=== PATIENT | female | born 1980 | race Caucasian/White ===

== ENCOUNTER 2018-08-04 08:04 | Emergency (ER) | payer SELFPAY ==
[2018-08-04] MEDS ORDERED: IBUPROFEN 400 MG TAB ONE (09:36)
[2018-08-04] MEDS ORDERED: IBUPROFEN 200 MG TAB PO ONE (09:37)
--- NOTE | 2018-08-04 09:59 | RAD REPORT ---
EXAM DESCRIPTION: RAD - Knee Right 3 View - 08/04/2018 9:45 am CLINICAL HISTORY: Right knee pain FINDINGS: No fracture or dislocation is seen. Bones appear osteoporotic. . Horizontal lines within the distal femur are nonspecific but may represent growth arrest lines. If the patient's knee pain persists then follow up x-ray in 4 weeks would recommended for re-evaluati on
--- NOTE | 2018-08-04 10:29 | EDPHYS ---
Physician Documentation [facility] Name: Nicho Roman Age: 38 yrs Sex: Female : 1980 Arrival Date: 08/04/2018 Time: 08:09 Bed 15 Private MD: ED Physician Omar Lofton HPI: 08/04 10:12 This 38 yrs old Female presents to ER via Ambulatory with complaints of Knee gs Pain. 10:12 The patient presents with pain, that is acute. The complaints affect the right knee. gs Onset: The symptoms/episode began/occurred 2 day(s) ago. Modifying factors: the symptoms are aggravated by bending knee. Associated signs and symptoms: Pertinent negatives numbness, tingling, weakness. Severity of symptoms: At their worst the symptoms were moderate, in the emergency department the symptoms are unchanged. The patient has not experienced similar symptoms in the past. Historical: - Allergies: 08:43 Azo; iw - Home Meds: 08:43 None [Active]; iw - PMHx: :43 None; iw - PSHx: 08:43 Tubal ligation; iw - Immunization history:: Adult Immunizations up to date. - Social history:: Smoking status: Patient uses tobacco products, smokes one pack cigarettes per day. - Ebola Screening: : Patient negative for fever greater than or equal to 101.5 degrees Fahrenheit, and additional compatible Ebola Virus Disease symptoms Patient denies exposure to infectious person Patient denies travel to an Ebola-affected area in the 21 days before illness onset No symptoms or risks identified at this time. ROS: 10:12 All other systems are negative. gs Exam: 10:12 ENT: Nares patent. No nasal discharge, no septal abnormalities noted. Tympanic gs membranes are normal and external auditory canals are clear. Oropharynx with no redness, swelling, or masses, exudates, or evidence of obstruction, uvula midline. Mucous membranes moist. Cardiovascular: Regular rate and rhythm with a normal S1 and S2. No gallops, murmurs, or rubs. Normal PMI, no JVD. No pulse deficits. Respiratory: Lungs have equal breath sounds bilaterally, clear to auscultation and percussion. No rales, rhonchi or wheezes noted. No increased work of breathing, no retractions or nasal flaring. Abdomen/GI: Soft, non-tender, with normal bowel sounds. No distension or tympany. No guarding or rebound. No evidence of tenderness throughout. Skin: Warm, dry with normal turgor. Normal color with no rashes, no lesions, and no evidence of cellulitis. Neuro: Awake and alert, GCS 15, oriented to person, place, time, and situation. Cranial nerves II-XII grossly intact. Motor strength 5/5 in all extremities. Sensory grossly intact. Cerebellar exam normal. Normal gait. 10:12 Constitutional: The patient appears alert, awake. 10:12 Musculoskeletal/extremity: Extremities: grossly normal except: noted in the right knee: pain, There is no evidence of deformity, swelling, tenderness, Joints: the right knee displays painful range of motion, tenderness. Vital Signs: 08:38 BP 120 / 73; Pulse 74; Resp 16; Temp 98.3; Pulse Ox 98% on R/A; Weight 38.56 kg; Height iw 5 ft. 1 in. (154.94 cm); Pain 8/10; 08:38 Body Mass Index 16.06 (38.56 kg, 154.94 cm) iw MDM: 08:53 Patient medically screened. gs 10:12 Differential diagnosis: closed fracture, contusion, tendonitis. Data reviewed: vital gs signs, nurses notes. Counseling: I had a detailed discussion with the patient and/or guardian regarding: radiology results, the need for outpatient follow up, a orthopedic surgeon. Response to treatment: the patient's symptoms have mildly improved after treatment. 08/04 09:09 Order name: Knee Right 3 View XRAY; Complete Time: 10:12 gs Administered Medications: 09:30 Drug: Ibuprofen 600 mg Route: PO; [facility] 10:57 Follow up: Response: No adverse reaction jl7 09:47 Not Given (Other Intervention Used): Naproxen 500 mg PO once jl7 Disposition: 08/04/18 10:27 Discharged to Home. Impression: Other internal derangements of right knee. - Condition is Stable. - Prescriptions for Tylenol- Codeine #4 300-60 mg Oral Tablet - take 1 tablet by ORAL route every 6 hours As needed; 6 tablet. - Medication Reconciliation Form, Thank You Letter, Antibiotic Education, Prescription Opioid Use form. - Follow up: Private Physician; When: 2 - 3 days; Reason: Re-evaluation by your physician. Signatures: Dispatcher [employer] Kya Contreras, RN RN iw Brain Walker RN RN jl7 Omar Lofton MD MD gs Corrections: (The following items were deleted from the chart) 10:58 10:27 08/04/2018 10:27 Discharged to Home. Impression: Other internal derangements of jl7 right knee. Condition is Stable. Forms are Medication Reconciliation Form, Thank You Letter, Antibiotic Education, Prescription Opioid Use. Follow up: Private Physician; When: 2 - 3 days; Reason: Re-evaluation by your physician. gs
--- NOTE | 2018-08-04 10:29 | ER ---
Nurse's Notes [facility] Name: Nicho Roman Age: 38 yrs Sex: Female : 1980 Arrival Date: 08/04/2018 Time: 08:09 Bed 15 Private MD: Diagnosis: Other internal derangements of right knee Presentation: 08/04 08:36 Presenting complaint: Patient states: right knee pain X 2 days, denies injury, hurts iw when she walks or when she bends it. Transition of care: patient was not received from another setting of care. Onset of symptoms was August 02, 2018. Risk Assessment: Do you want to hurt yourself or someone else? Patient reports no desire to harm self or others. Initial Sepsis Screen: Does the patient meet any 2 criteria? No. Patient's initial sepsis screen is negative. Does the patient have a suspected source of infection? No. Patient's initial sepsis screen is negative. Care prior to arrival: None. 08:36 Method Of Arrival: Ambulatory iw 08:36 Acuity: ROSIBEL 4 iw Historical: - Allergies: 08:43 Azo; iw - Home Meds: 08:43 None [Active]; iw - PMHx: 08:43 None; iw - PSHx: 08:43 Tubal ligation; iw - Immunization history:: Adult Immunizations up to date. - Social history:: Smoking status: Patient uses tobacco products, smokes one pack cigarettes per day. - Ebola Screening: : Patient negative for fever greater than or equal to 101.5 degrees Fahrenheit, and additional compatible Ebola Virus Disease symptoms Patient denies exposure to infectious person Patient denies travel to an Ebola-affected area in the 21 days before illness onset No symptoms or risks identified at this time. Screenin:00 Abuse screen: Denies threats or abuse. Denies injuries from another. Nutritional jl7 screening: No deficits noted. Tuberculosis screening: No symptoms or risk factors identified. Fall Risk Gait- Impaired (20 pts.). Total Jules Fall Scale indicates No Risk (0-24 pts). Assessment: 09:00 General: Appears in no apparent distress. uncomfortable, Behavior is calm, cooperative, jl7 appropriate for age. Pain: Complains of pain in right knee Pain currently is 8 out of 10 on a pain scale. Pain began years ago. Neuro: Level of Consciousness is awake, alert, obeys commands, Oriented to person, place, time, situation. Cardiovascular: Patient's skin is warm and dry. Respiratory: Airway is patent Respiratory effort is even, unlabored, Respiratory pattern is regular, symmetrical. Derm: Skin is pink, warm \T\ dry. 10:00 Reassessment: Patient appears in no apparent distress at this time. No changes from jl7 previously documented assessment. Patient and/or family updated on plan of care and expected duration. Pain level reassessed. Patient is alert, oriented x 3, equal unlabored respirations, skin warm/dry/pink. Vital Signs: 08:38 BP 120 / 73; Pulse 74; Resp 16; Temp 98.3; Pulse Ox 98% on R/A; Weight 38.56 kg; Height iw 5 ft. 1 in. (154.94 cm); Pain 8/10; 08:38 Body Mass Index 16.06 (38.56 kg, 154.94 cm) iw ED Course: 08:09 Patient arrived in ED. rg4 08:37 Triage completed. iw 08:37 Omar Lofton MD is Attending Physician. gs 08:38 Brain Walker, YOVANA is Primary Nurse. jl7 08:44 Arm band placed on. iw 09:00 Patient has correct armband on for positive identification. Placed in gown. Bed in low jl7 position. Call light in reach. Side rails up X 1. Pulse ox on. NIBP on. Warm blanket given. 09:45 X-ray completed. Portable x-ray completed in exam room. Patient tolerated procedure tm4 well. 09:46 Knee Right 3 View XRAY In Process Unspecified. EDMS 10:56 No provider procedures requiring assistance completed. Patient did not have IV access jl7 during this emergency room visit. Administered Medications: 09:30 Drug: Ibuprofen 600 mg Route: PO; jl7 10:57 Follow up: Response: No adverse reaction jl7 09:47 Not Given (Other Intervention Used): Naproxen 500 mg PO once jl7 Outcome: 10:27 Discharge ordered by . gs 10:56 Discharged to home ambulatory, with family. jl7 10:56 Condition: stable 10:56 Discharge instructions given to patient, family, Instructed on discharge instructions, follow up and referral plans. medication usage, Demonstrated understanding of instructions, follow-up care, medications, Prescriptions given X 1. 10:58 Patient left the ED. jl7 Signatures: Dispatcher [employer] EDMS Anali Villatoro tm4 Kya Newsome RN RN iw Garcia, Rubi 4 Brain Walker RN RN jl7 Omar Lofton MD MD
== END 2018-08-04 10:58 | disposition home or self-care (01) ==
LOC: ER 08:04
DX: M23.8X1 Other internal derangements of right knee (principal); F17.210 Nicotine dependence, cigarettes, uncomplicated; Z88.8 Allergy status to other drugs, medicaments and biological substances
CPT/HCPCS: 99284

== ENCOUNTER 2018-11-27 09:30 | Emergency (ER) | payer SELFPAY ==
--- OUTSIDE RECORDS SUMMARY | 2018-11-27 09:37 | XMS REPORT ---
:1980 Author Organization [facility] Address [address] [place] [address] [address] [place] [address] Care Team Providers Name Role Phone Unavailable Unavailable Unavailable Payers Payer Name Policy Type Policy Number Effective Date Expiration Date Problems This patient has no known problems. Allergies, Adverse Reactions, Alerts Allergy Allergy Status Severity Reaction(s) Onset Inactive Treating Comments Name Type Date Date Clinician No Known DA Active U 2018-10 Allergies 23 00:00:0 0 Medications This patient has no known medications. Results Test Description Test Time Test Comments Text Results Atomic Results Result Comments UR HCG QUAL 2018-11-08 07:19:00 Test Item Value Reference Range Comments UR HCG QUAL (test code=HCGQLU) NEGATIVE NEGATIVE
--- NOTE | 2018-11-27 10:20 | RAD REPORT ---
EXAM DESCRIPTION: CT - Stone Protocol - 11/27/2018 10:10 am CLINICAL HISTORY: Left flank pain, dysuria COMPARISON: None. TECHNIQUE: Axial 5 mm thick images were obtained without oral or IV contrast. The [id number] span s the entirety of the system including uppermost abdomen and lung bases. All CT scans are performed using dose optimization technique as appropriate and may include automated exposure control or mA/KV adjustment according to patient size. FINDINGS: Small fullness of the left collecting system is present very slightly edematous appearance along the course of the left ureter and subtle edema changes of the left kidney relative to the righ t. A 2 millimeter nonobstructing calyx calculus is present on the left. No obstructing ureteral calcu heena. No bladder calculus present. No suspicious renal masses. Isodense masses and pyelonephritis are not excluded on a stone protocol CT scan. No urinary bladder suspicious finding. No significant adren al finding. Uterus and ovaries show no suspicious findings. Physiologic quantity of free fluid in the cul de sac. Imaged portions of the liver, spleen and pancreas show no suspicious findings on non-contrast imaging . No gallbladder or biliary tree abnormality identified. No suspicious bowel findings. No hernia, mass or bulky lymphadenopathy noted. No free air or pneumatosis. No significant bony abnormality. IMPRESSION: Mild fullness of the left collecting system with a mild or subtle edema of the left kidn ey and left collecting system. Findings are questionable for pyelonephritis and/or ureteritis. Noncontrast CT imaging is limited in assessing these etiologies. Correlation is needed with UA abnormalities. A 2 millimeter nonobstructing calculus noted on the left. No other calculus seen. No acute GI or CASE MANAGEMENT RN process. No surgically emergent finding. Isodense masses and pyelonephritis are not excluded on stone protocol technique.
[2018-11-27 10:28] LABS: Urine Blood 3+ (NEG); Urine Glucose NEGATIVE (NEG); Urine Protein 3+ (NEG); Urine Specific Gravity 1.025 (1.005-1.030); Urine pH 6.5 (5.0-7.0)
[2018-11-27] MEDS ORDERED: ONDANSETRON 4 MG/2 ML VIAL ONE (10:37)
[2018-11-27] MEDS ORDERED: KETOROLAC 30 MG/ML INJ ONE (10:37)
[2018-11-27] MEDS ORDERED: NA CHLORIDE 0.9% 1,000 ML ONE (10:37)
[2018-11-27 10:39] LABS: Absolute Lymphocytes (CBC) 1.8 K/uL (0.7-4.9); Absolute Monocytes 0.9 K/uL (0.1-1.3); Absolute Neutrophil 7.4 K/uL (1.8-8.0); Basophils % 0.5 % (0-1.3); Eosinophils % 0.7 % (0-4.4); Hematocrit 38.4 % (36.0-45.0); Lymphocytes % 17.6 % (15.3-44.8); MPV 8.1 fL (7.6-11.3); Monocytes % 8.6 % (3.3-12.3); RBC Red Blood Cell Count 4.36 M/uL (3.86-4.86)
[2018-11-27 10:53] LABS: ALT/SGPT 84 U/L (12-78); AST/SGOT 67 U/L (15-37); Albumin 3.4 g/dL (3.4-5.0); Alkaline Phosphatase 39 U/L (45-117); BUN Blood Urea Nitrogen 9 mg/dL (7-18); Bicarbonate 29 mmol/L (21-32); Bilirubin Total 0.6 mg/dL (0.2-1.0); Glucose Level 158 mg/dL (74-106); Potassium 3.3 mmol/L (3.5-5.1); Protein, Total 7.2 g/dL (6.4-8.2); Sodium Level 139 mmol/L (136-145)
[2018-11-27] MEDS ORDERED: CEFTRIAXONE/SWI 1gm 1 GM/10 ML SYR ONE (10:56)
--- NOTE | 2018-11-27 10:56 | EDPHYS ---
Physician Documentation [facility] Name: Nicho Roman Age: 38 yrs Sex: Female : 1980 Arrival Date: 11/27/2018 Time: 09:33 Bed 6 Private MD: ED Physician Rob Pablo HPI: 11/27 09:51 This 38 yrs old Female presents to ER via Ambulatory with complaints of ps1 Urinary Problem, Abdominal Pain, Back Pain. 09:51 patient states that 3 days ago she started having flank pain localized to left side ps1 with radiation into the groin. Hx of remote UTI in past. Now having hematuria and solid "chunks" in her urine. Recent trip to [place]. No fever. Has dysuria, frequency. Pain is mild to moderate worse with urination. Additionally has cold sores on lip. . 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 - Social history:: Smoking status: Patient uses tobacco products, smokes one pack cigarettes per day. - Ebola Screening: : Patient denies exposure to infectious person Patient denies travel to an Ebola-affected area in the 21 days before illness onset. ROS: 09:51 Constitutional: Negative for fever, chills, and weight loss, Eyes: Negative for injury, ps1 pain, redness, and discharge, Cardiovascular: Negative for chest pain, palpitations, and edema, Respiratory: Negative for shortness of breath, cough, wheezing, and pleuritic chest pain, Abdomen/GI: Negative for abdominal pain, nausea, vomiting, diarrhea, and constipation, MS/Extremity: Negative for injury and deformity, Neuro: Negative for headache, weakness, numbness, tingling, and seizure. 09:51 : Positive for urinary symptoms, flank pain, urinary frequency, burning with urination. 09:51 Skin: Positive for cold sores on upper and lower lip. Exam: 09:51 Constitutional: This is a well developed, well nourished patient who is awake, alert, ps1 and in no acute distress. Head/Face: Normocephalic, atraumatic. Eyes: Pupils equal round and reactive to light, extra-ocular motions intact. Lids and lashes normal. Conjunctiva and sclera are non-icteric and not injected. Chest/axilla: Normal chest wall appearance and motion. Nontender with no deformity. No lesions are appreciated. Cardiovascular: Regular rate and rhythm. No gallops, murmurs, or rubs. Normal PMI, no JVD. No pulse deficits. Respiratory: Lungs have equal breath sounds bilaterally, clear to auscultation and percussion. No rales, rhonchi or wheezes noted. No increased work of breathing, no retractions or nasal flaring. Abdomen/GI: Soft, non-tender, with normal bowel sounds. No distension or tympany. No guarding or rebound. No evidence of tenderness throughout. Skin: Warm, dry with normal turgor. Normal color with no rashes, no lesions, and no evidence of cellulitis. MS/ Extremity: Pulses equal, no cyanosis. Neurovascular intact. Full, normal range of motion. Neuro: Awake and alert, GCS 15, oriented to person, place, time, and situation. Cranial nerves II-XII grossly intact. Sensory grossly intact. Psych: Awake, alert, with orientation to person, place and time. Behavior, mood, and affect are within normal limits. Vital Signs: 09:42 Resp 15; Temp 98.7(TE); Weight 37.65 kg; Height 5 ft. 1 in. (154.94 cm); Pain 10/10; ss 09:53 BP 118 / 77; Pulse 73; Pulse Ox 100% on R/A; ss 11:10 BP 93 / 64; Pulse 65; Resp 14; Pulse Ox 97% ; bp 09:42 Body Mass Index 15.68 (37.65 kg, 154.94 cm) ss MDM: 10:00 Patient medically screened. ps1 10:58 Data reviewed: vital signs, nurses notes, lab test result(s), radiologic studies, and ps1 as a result, I will discharge patient. Counseling: I had a detailed discussion with the patient and/or guardian regarding: the historical points, exam findings, and any diagnostic results supporting the discharge/admit diagnosis, lab results, radiology results, the need for outpatient follow up, to return to the emergency department if symptoms worsen or persist or if there are any questions or concerns that arise at home. ED course: patient has uncomplicated pyelonephritis. Home treatment with Levaquin after ED Rocephin. Return precautions given./ . 11/27 09:51 Order name: CBC with Diff; Complete Time: 10:47 ps1 11/27 09:51 Order name: CMP; Complete Time: 10:55 ps1 11/27 09:51 Order name: CT Stone Protocol; Complete Time: 10:37 ps1 11/27 09:51 Order name: Urine Culture ps1 11/27 10:16 Order name: Urine Dipstick--Ancillary (enter results); Complete Time: 10:37 bd 11/27 10:16 Order name: Urine --Ancillary (enter results); Complete Time: 10:37 bd 11/27 09:51 Order name: Urine Dipstick-Ancillary (obtain specimen); Complete Time: 10:10 ps1 Administered Medications: 10:15 Drug: NS 0.9% 1000 ml Route: IV; Rate: 1 bolus; Site: right antecubital; bp 12:15 Follow up: IV Status: Completed infusion; IV Intake: 1000ml bp 10:15 Drug: Zofran 4 mg Route: IVP; Site: right antecubital; bp 10:44 Follow up: Response: Nausea is decreased bp 10:15 Drug: TORadol 30 mg Route: IVP; Site: right antecubital; bp 10:43 Follow up: Response: Pain is decreased bp 10:43 Drug: Rocephin - (cefTRIAXone) 1 grams Route: IVPB; Infused Over: 30 mins; Site: right bp antecubital; 12:15 Follow up: IV Status: Completed infusion; IV Intake: 50ml bp Disposition: 11/27/18 10:56 Discharged to Home. Impression: Acute pyelonephritis. - Condition is Stable. - Discharge Instructions: Pyelonephritis, Adult. - Prescriptions for ketorolac 10 mg Oral tablet - take 1 tablet by ORAL route every 4-6 hours not to exceed 40mg in 24hrs for up to 5 days total use; 10 tablet. Levaquin 750 mg Oral Tablet - take 1 tablet by ORAL route once daily for 10 days; 10 tablet. Zofran 4 mg Oral Tablet - take 1 tablet by ORAL route every 12 hours As needed; 20 tablet. - Medication Reconciliation Form, Thank You Letter, Antibiotic Education, Prescription Opioid Use form. - Follow up: Private Physician; When: As needed; Reason: Further diagnostic work-up, Recheck today's complaints, Continuance of care, Re-evaluation by your physician. Follow up: Emergency Department; When: As needed; Reason: Fever > 102 F, Worsening of condition. - Problem is new. - Symptoms are unchanged. Signatures: Dispatcher [employer] EDAR Misa Barrera RN RN ss Barry Chicas RN RN bp Rob Pablo MD MD ps1 Corrections: (The following items were deleted from the chart) 12:18 10:56 11/27/2018 10:56 Discharged to Home. Impression: Acute pyelonephritis. Condition bp is Stable. Forms are Medication Reconciliation Form, Thank You Letter, Antibiotic Education, Prescription Opioid Use. Follow up: Private Physician; When: As needed; Reason: Further diagnostic work-up, Recheck today's complaints, Continuance of care, Re-evaluation by your physician. Follow up: Emergency Department; When: As needed; Reason: Fever > 102 F, Worsening of condition. Problem is new. Symptoms are unchanged. ps1
--- NOTE | 2018-11-27 10:56 | ER ---
Nurse's Notes [facility] Name: Nicho Roman Age: 38 yrs Sex: Female : 1980 Arrival Date: 11/27/2018 Time: 09:33 Bed 6 Private MD: Diagnosis: Acute pyelonephritis Presentation: 11/27 09:39 Presenting complaint: Patient states: burning with urination and frequency x 3 days. L ss flank pain that began yesterday evening. Transition of care: patient was not received from another setting of care. Onset of symptoms was November 24, 2018. Risk Assessment: Do you want to hurt yourself or someone else? Patient reports no desire to harm self or others. Initial Sepsis Screen: Does the patient meet any 2 criteria? No. Patient's initial sepsis screen is negative. Does the patient have a suspected source of infection? No. Patient's initial sepsis screen is negative. Care prior to arrival: None. 09:39 Method Of Arrival: Ambulatory ss 09:39 Acuity: ROSIBEL 3 ss Triage Assessment: 09:40 General: Appears in no apparent distress. uncomfortable, slender, Behavior is bp cooperative, appropriate for age, anxious. Pain: Complains of pain in low back area. EENT: No deficits noted. Neuro: Level of Consciousness is awake, alert, obeys commands, Oriented to person, place, time, situation, Appropriate for age. Cardiovascular: No deficits noted. Respiratory: Reports cough that is. Respiratory: Airway is patent Respiratory effort is even, unlabored, Respiratory pattern is regular, symmetrical. GI: No signs and/or symptoms were reported involving the gastrointestinal system. : No signs and/or symptoms were reported regarding the genitourinary system. Derm: No deficits noted. Musculoskeletal: Circulation, motion, and sensation intact. Range of motion: intact in all extremities. 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 - Social history:: Smoking status: Patient uses tobacco products, smokes one pack cigarettes per day. - Ebola Screening: : Patient denies exposure to infectious person Patient denies travel to an Ebola-affected area in the 21 days before illness onset. Screenin:45 Abuse screen: Denies threats or abuse. Denies injuries from another. Nutritional bp screening: No deficits noted. Tuberculosis screening: No symptoms or risk factors identified. Fall Risk None identified. Assessment: 09:45 General: SEE TRIAGE NOTE. bp 11:11 Reassessment: D/C ON HOLD FOR IVF COMPLETION. bp 12:15 Reassessment: PT D/C HOME AMBULATORY WITH FAMILY, DX WITH PYELONEPHRITIS. bp 12:17 GI: Bowel sounds present X 4 quads. Abd is soft X 4 quads. bp Vital Signs: 09:42 Resp 15; Temp 98.7(TE); Weight 37.65 kg; Height 5 ft. 1 in. (154.94 cm); Pain 10/10; ss 09:53 BP 118 / 77; Pulse 73; Pulse Ox 100% on R/A; ss 11:10 BP 93 / 64; Pulse 65; Resp 14; Pulse Ox 97% ; bp 09:42 Body Mass Index 15.68 (37.65 kg, 154.94 cm) ED Course: 09:33 Patient arrived in ED. mr 09:36 Rob Pablo MD is Attending Physician. ps1 09:37 Barry Chicas, YOVANA is Primary Nurse. bp 09:40 Triage completed. ss 09:42 Arm band placed on right wrist. ss 09:45 Patient has correct armband on for positive identification. Bed in low position. Call bp light in reach. Side rails up X2. Adult w/ patient. 10:10 Urine collected: clean catch specimen, cloudy, tea colored. jb1 10:11 CT Stone Protocol In Process Unspecified. EDMS 10:15 Inserted saline lock: 22 gauge in right antecubital area, using aseptic technique. bp Blood collected. 12:17 No provider procedures requiring assistance completed. IV discontinued, intact, bp bleeding controlled, No redness/swelling at site. Pressure dressing applied. Administered Medications: 10:15 Drug: NS 0.9% 1000 ml Route: IV; Rate: 1 bolus; Site: right antecubital; bp 12:15 Follow up: IV Status: Completed infusion; IV Intake: 1000ml bp 10:15 Drug: Zofran 4 mg Route: IVP; Site: right antecubital; bp 10:44 Follow up: Response: Nausea is decreased bp 10:15 Drug: TORadol 30 mg Route: IVP; Site: right antecubital; bp 10:43 Follow up: Response: Pain is decreased bp 10:43 Drug: Rocephin - (cefTRIAXone) 1 grams Route: IVPB; Infused Over: 30 mins; Site: right bp antecubital; 12:15 Follow up: IV Status: Completed infusion; IV Intake: 50ml bp Intake: 12:15 IV: 1000ml; Total: 1000ml. bp 12:15 IV: 50ml; Total: 1050ml. bp Outcome: 10:56 Discharge ordered by MD. ps1 12:16 Discharged to home ambulatory, with family. bp 12:16 Condition: stable 12:16 Discharge instructions given to patient, Instructed on discharge instructions, follow up and referral plans. medication usage, Demonstrated understanding of instructions, follow-up care, medications, Prescriptions given X 3. 12:18 Patient left the ED. bp Addendum: 11/30/2018 07:10 Addendum: Culture Results: Positive urine culture. No further action required. Bacteria i w sensitive to prescribed antibiotic. Signatures: Dispatcher [employer] EDMS Michael Emerson1 Yassine Emily mr Kya Newsome RN RN iw Smirch, Shelby, RN RN ss Peltier, Brian, RN RN bp Singer, Phillip, MD MD ps1
== END 2018-11-27 12:18 | disposition home or self-care (01) ==
LOC: ER 09:30
DX: N10 Acute pyelonephritis (principal); F32.9 Major depressive disorder, single episode, unspecified; F17.210 Nicotine dependence, cigarettes, uncomplicated; Z88.8 Allergy status to other drugs, medicaments and biological substances
CPT/HCPCS: 36415; 74176; 76377; 80053; 81003; 81025; 85025; 87077; 87086; 87088; 87186; 96365; 96366; 96375; 99284; J0696; J2405; J7030

== ENCOUNTER 2019-08-18 16:16 | Emergency (ER) | payer SELFPAY ==
--- OUTSIDE RECORDS SUMMARY | 2019-08-18 16:18 | XMS REPORT ---
:1980 Author Organization [facility] Address [address] [place] [address] [address]. [address] [place] [address] Care Team Providers Name Role Phone Unavailable [...]
--- NOTE | 2019-08-18 16:42 | EDPHYS ---
Physician Documentation [facility] Name: Nicho Roman Age: 39 yrs Sex: Female : 1980 Arrival Date: 08/18/2019 Time: 16:20 Bed 7 Private MD: STEFANO Physician Tito Florentino HPI: 08/17 16:36 This 39 yrs old Female presents to ER via Law Enforcement with complaints of silvestre Anxiety. 16:36 The patient presents to the emergency department with anxiety. Onset: The silvestre symptoms/episode began/occurred just prior to arrival. Past psychiatric history: Prior diagnosis: depression, Psychiatric medications include: none. The patient presents to the emergency department with pain in the rectal area, that is moderate. Onset: The symptoms/episode began/occurred 2 day(s) ago. Associated signs and symptoms: The patient has no apparent associated signs or symptoms. Modifying factors: The symptoms are alleviated by remaining still, sitz baths, The symptoms are aggravated by bowel movement, movement, sitting position. Historical: - Allergies: 16:29 Azo; ph 16:29 Iodine; ph - PMHx: 16:29 Depression; Anxiety; ph - PSHx: 16:29 Tubal ligation; ph - Immunization history:: Adult Immunizations unknown. - Social history:: Smoking status: Patient reports the use of cigarette tobacco products, smokes one pack cigarettes per day. Patient uses alcohol, occasionally. street drugs, marijuana. - Family history:: not pertinent. ROS: 16:38 Constitutional: Negative for fever, chills, and weight loss, Eyes: Negative for injury, silvestre pain, redness, and discharge, ENT: Negative for injury, pain, and discharge, Neck: Negative for injury, pain, and swelling, Cardiovascular: Negative for chest pain, palpitations, and edema, Respiratory: Negative for shortness of breath, cough, wheezing, and pleuritic chest pain, Back: Negative for injury and pain, : Negative for injury, bleeding, discharge, and swelling, MS/Extremity: Negative for injury and deformity, Skin: Negative for injury, rash, and discoloration, Neuro: Negative for headache, weakness, numbness, tingling, and seizure, Allergy/Immunology: Negative for hives, rash, and allergies, Endocrine: Negative for neck swelling, polydipsia, polyuria, polyphagia, and marked weight changes, Hematologic/Lymphatic: Negative for swollen nodes, abnormal bleeding, and unusual bruising. 16:38 Abdomen/GI: Positive for rectal pain. 16:38 Psych: Positive for anxiety. Exam: 16:38 Constitutional: This is a well developed, well nourished patient who is awake, alert, silvestre and in no acute distress. Head/Face: Normocephalic, atraumatic. Eyes: Pupils equal round and reactive to light, extra-ocular motions intact. Lids and lashes normal. Conjunctiva and sclera are non-icteric and not injected. Cornea within normal limits. Periorbital areas with no swelling, redness, or edema. ENT: Nares patent. No nasal discharge, no septal abnormalities noted. Tympanic membranes are normal and external auditory canals are clear. Oropharynx with no redness, swelling, or masses, exudates, or evidence of obstruction, uvula midline. Mucous membranes moist. Neck: Trachea midline, no thyromegaly or masses palpated, and no cervical lymphadenopathy. Supple, full range of motion without nuchal rigidity, or vertebral point tenderness. No Meningismus. Chest/axilla: Normal chest wall appearance and motion. Nontender with no deformity. No lesions are appreciated. Cardiovascular: Regular rate and rhythm with a normal S1 and S2. No gallops, murmurs, or rubs. Normal PMI, no JVD. No pulse deficits. Respiratory: Lungs have equal breath sounds bilaterally, clear to auscultation and percussion. No rales, rhonchi or wheezes noted. No increased work of breathing, no retractions or nasal flaring. Back: No spinal tenderness. No costovertebral tenderness. Full range of motion. Skin: Warm, dry with normal turgor. Normal color with no rashes, no lesions, and no evidence of cellulitis. MS/ Extremity: Pulses equal, no cyanosis. Neurovascular intact. Full, normal range of motion. Neuro: Awake and alert, GCS 15, oriented to person, place, time, and situation. Cranial nerves II-XII grossly intact. Motor strength 5/5 in all extremities. Sensory grossly intact. Cerebellar exam normal. Normal gait. Psych: Awake, alert, with orientation to person, place and time. Behavior, mood, and affect are within normal limits. 16:38 Abdomen/GI: Inspection: abdomen appears normal, Bowel sounds: normal, Palpation: abdomen is soft and non-tender, Rectal exam: hemorrhoid(s), external, with inflammation, with pain, with thrombosis, without bleeding, Liver: no appreciated palpable abnormalities, Hernia: not appreciated. Vital Signs: 16:22 BP 122 / 108; Pulse 109; Resp 22; Temp 98.9; Pulse Ox 100% on R/A; Weight 37.65 kg; ph Height 5 ft. 1 in. (154.94 cm); 16:22 Body Mass Index 15.68 (37.65 kg, 154.94 cm) ph MDM: 16:22 Patient medically screened. [facility] 16:39 Data reviewed: vital signs, nurses notes. [facility] Administered Medications: 16:59 Drug: Ativan 1 mg Route: PO; ph 17:23 Follow up: Response: No adverse reaction ph 17:16 Drug: Anusol-HC 25 mg 25 mg Route: MN; 17:23 Follow up: Response: No adverse reaction ph Disposition: 08/18/19 16:40 Discharged to Home. Impression: Anxiety disorder, unspecified, Hemorrhoids and perianal venous thrombosis - mild. - Condition is Stable. - Discharge Instructions: Panic Attacks, Hemorrhoids, How to Take a Sitz Bath, Panic Attacks, [id number], Hemorrhoids, [id number]. - Prescriptions for Benadryl 25 mg Oral Capsule - take 1 capsule by ORAL route every 6 hours As needed; 30 tablet. Colace 100 mg Oral Tablet - take 1 tablet by ORAL route every 12 hours; 14 tablet. Anusol- HC 25 mg Rectal Suppository - insert 1 suppository by RECTAL route every 12 hours As needed; 14 suppository. - Medication Reconciliation Form, Thank You Letter, Antibiotic Education, Prescription Opioid Use form. - Follow up: Private Physician; When: 2 - 3 days; Reason: Recheck today's complaints, Continuance of care, Re-evaluation by your physician. Follow up: Suhas Gleason MD; When: 2 - 3 days; Reason: Recheck today's complaints, Continuance of care, Re-evaluation by your physician. - Problem is new. - Symptoms have improved. Signatures: Tito Florentino MD MD cha Smirch, Shelby, RN RN Nora Mcgee RN RN ph Corrections: (The following items were deleted from the chart) 16:41 16:40 08/18/2019 16:40 Discharged to Home. Impression: Anxiety disorder, unspecified; silvestre Hemorrhoids and perianal venous thrombosis - mild. Condition is Stable. Forms are Medication Reconciliation Form, Thank You Letter, Antibiotic Education, Prescription Opioid Use. Follow up: Private Physician; When: 2 - 3 days; Reason: Recheck today's complaints, Continuance of care, Re-evaluation by your physician. Problem is new. Symptoms have improved. silvestre 17:24 16:41 08/18/2019 16:40 Discharged to Home. Impression: Anxiety disorder, unspecified; ph Hemorrhoids and perianal venous thrombosis - mild. Condition is Stable. Forms are Medication Reconciliation Form, Thank You Letter, Antibiotic Education, Prescription Opioid Use. Follow up: Private Physician; When: 2 - 3 days; Reason: Recheck today's complaints, Continuance of care, Re-evaluation by your physician. Follow up: Suhas Gleason; When: 2 - 3 days; Reason: Recheck today's complaints, Continuance of care, Re-evaluation by your physician. Problem is new. Symptoms have improved. silvestre
--- NOTE | 2019-08-18 16:42 | ER ---
Nurse's Notes [facility] Name: Nicho Roman Age: 39 yrs Sex: Female : 1980 Arrival Date: 08/18/2019 Time: 16:20 Bed 7 Private MD: Diagnosis: Anxiety disorder, unspecified;Hemorrhoids and perianal venous thrombosis-mild Presentation: 08/17 16:22 Chief complaint: Patient states: Reports anxiety and rectal pain, reports hx of ph hemorrhoids, arrived to ED in police custody, appears anxious. Coronavirus screen: The patient has NOT traveled to [place] in the past 14 days. The patient has NOT had contact with known and/or suspected case of Coronavirus. Ebola Screen: No symptoms or risks identified at this time. Initial Sepsis Screen: Does the patient meet any 2 criteria? No. Patient's initial sepsis screen is negative. Does the patient have a suspected source of infection? No. Patient's initial sepsis screen is negative. Risk Assessment: Do you want to hurt yourself or someone else? Patient reports no desire to harm self or others. 16:22 Method Of Arrival: Law Enforcement: [employer] ph 16:22 Acuity: ROSIBEL 4 ph Historical: - Allergies: 16:29 Azo; ph 16:29 Iodine; ph - PMHx: 16:29 Depression; Anxiety; ph - PSHx: 16:29 Tubal ligation; ph - Immunization history:: Adult Immunizations unknown. - Social history:: Smoking status: Patient reports the use of cigarette tobacco products, smokes one pack cigarettes per day. Patient uses alcohol, occasionally. street drugs, marijuana. - Family history:: not pertinent. Screenin:29 Abuse screen: Denies threats or abuse. Denies injuries from another. Nutritional ph screening: No deficits noted. Tuberculosis screening: No symptoms or risk factors identified. Fall Risk None identified. Assessment: 16:35 General: Appears in no apparent distress. uncomfortable, emaciated, Behavior is ph cooperative, anxious, crying, fussy. Pain: Complains of pain in anus. Neuro: Level of Consciousness is awake, alert, obeys commands, Oriented to person, place, time, situation. Cardiovascular: Capillary refill < 3 seconds in bilateral fingers Patient's skin is warm and dry. Respiratory: Airway is patent Respiratory effort is even, unlabored, Respiratory pattern is regular, symmetrical. GI: Reports rectal pain. Derm: Skin is intact, Skin is pink, warm \T\ dry. Musculoskeletal: Circulation, motion, and sensation intact. Range of motion: intact in all extremities. 16:38 Reassessment: Patient appears in no apparent distress at this time. Patient and/or ph family updated on plan of care and expected duration. Pain level reassessed. Dr Florentino at bedside for rectal exam. 16:59 Reassessment: D/C pending medication from pharmacy. ph 17:22 Reassessment: Patient appears in no apparent distress at this time. Patient and/or ph family updated on plan of care and expected duration. Pain level reassessed. Pt d/c w/ police. Vital Signs: 16:22 BP 122 / 108; Pulse 109; Resp 22; Temp 98.9; Pulse Ox 100% on R/A; Weight 37.65 kg; ph Height 5 ft. 1 in. (154.94 cm); 16:22 Body Mass Index 15.68 (37.65 kg, 154.94 cm) ph ED Course: 16:20 Patient arrived in ED. ph 16:22 Tito Florentino MD is Attending Physician. silvestre 16:26 Triage completed. ph 16:29 Arm band placed on Patient placed in an exam room, on a stretcher, on monitor car operator, ph on pulse oximetry. 16:35 Patient has correct armband on for positive identification. Placed in gown. Bed in low ph position. Call light in reach. Side rails up X 1. Pulse ox on. NIBP on. Door closed. Noise minimized. Warm blanket given. 16:40 Nora Mcgee RN is Primary Nurse. ph 16:41 Suhas Gleason MD is Referral Physician. silvestre 17:00 No provider procedures requiring assistance completed. Patient did not have IV access ph during this emergency room visit. Administered Medications: 16:59 Drug: Ativan 1 mg Route: PO; ph 17:23 Follow up: Response: No adverse reaction ph 17:16 Drug: Anusol-HC 25 mg 25 mg Route: AK; ss 17:23 Follow up: Response: No adverse reaction ph Outcome: 16:40 Discharge ordered by . silvestre 17:22 Discharged to Law Enforcement ph 17:22 Condition: good 17:22 Discharge instructions given to patient, police, Instructed on discharge instructions, follow up and referral plans. medication usage, Demonstrated understanding of instructions, follow-up care, medications, Prescriptions given X 3. 17:24 Patient left the ED. ph Signatures: Tito Florentino MD MD cha Smirch, Shelby, RN RN Nora Mcgee RN RN ph
[2019-08-18] MEDS ORDERED: LORAZEPAM 1 MG TABLET ONE (16:58)
[2019-08-18] MEDS ORDERED: HYDROCORTISONE ACETATE 25MG SUPP PR ONE (17:15)
[2019-08-18 19:18] VITALS: BP 122/108; TEMP 98.9; O2SAT 100
== END 2019-08-18 17:24 | disposition home or self-care (01) ==
LOC: ER 16:16
DX: F41.9 Anxiety disorder, unspecified (principal); K64.9 Unspecified hemorrhoids; K64.5 Perianal venous thrombosis; Z91.09 Other allergy status, other than to drugs and biological substances; F17.210 Nicotine dependence, cigarettes, uncomplicated; F12.90 Cannabis use, unspecified, uncomplicated; Z72.89 Other problems related to lifestyle
CPT/HCPCS: 99283

== ENCOUNTER 2019-12-10 13:32 | Emergency (ER) | payer SELFPAY ==
--- NOTE | 2019-12-10 15:14 | ER ---
Nurse's Notes [facility] Name: Nicho Roman Age: 39 yrs Sex: Female : 1980 Arrival Date: 12/10/2019 Time: 13:36 Bed 20 Private MD: Diagnosis: Viral infection, unspecified Presentation: 12/09 13:50 Chief complaint: Patient states: Slight cough and SOB, body aches, no appetite with ll1 slight diarrhea for 5 days. Had to miss work, they sent her in for covid test. Coronavirus screen: Surgical mask placed on patient. Patient moved to private room, placed in contact and droplet isolation with eye protection until further assessment. Patient reports a cough. Patient reports shortness of breath or difficulty breathing. Patient denies measured and/or subjective temperature greater than 100.4F prior to today's visit. Patient denies travel on a cruise ship or to a country the [facility] currently lists as an affected area. Patient denies contact with known and/or suspected case of COVID-19. Ebola Screen: Patient denies travel to an Ebola-affected area in the 21 days before illness onset. Initial Sepsis Screen: Does the patient meet any 2 criteria? HR > 90 bpm. Does the patient have a suspected source of infection? No. Patient's initial sepsis screen is negative. Risk Assessment: Do you want to hurt yourself or someone else? Patient reports no desire to harm self or others. Onset of symptoms was December 05, 2019. 13:50 Method Of Arrival: Ambulatory ll1 13:50 Acuity: ROSIBEL 3 ll1 Triage Assessment: 14:48 General: Appears in no apparent distress. ill, Behavior is calm, cooperative, vc appropriate for age. Pain: Complains of pain in generalized Pain does not radiate. Pain currently is 5 out of 10 on a pain scale. Quality of pain is described as aching, Pain began 5 days ago. 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 - Social history:: Smoking status: Patient reports the use of cigarette tobacco products, smokes one pack cigarettes per day. Patient/guardian denies using alcohol, street drugs. Screenin:47 Abuse screen: Denies threats or abuse. Nutritional screening: No deficits noted. vc Tuberculosis screening: No symptoms or risk factors identified. Fall Risk None identified. Assessment: 14:30 General: Appears in no apparent distress. uncomfortable, ill, slender, Behavior is vc calm, cooperative, appropriate for age. Neuro: Level of Consciousness is awake, alert, obeys commands, Oriented to person, place, time, situation, Appropriate for age Reports dizziness. Cardiovascular: Capillary refill < 3 seconds Patient's skin is warm and dry. Respiratory: Reports shortness of breath Airway is patent Respiratory effort is even, unlabored, Respiratory pattern is regular, symmetrical. GI: Reports nausea. : No signs and/or symptoms were reported regarding the genitourinary system. Derm: Skin is intact, is healthy with good turgor, Skin temperature is warm. Musculoskeletal: Circulation, motion, and sensation intact. Range of motion: intact in all extremities. 15:40 Reassessment: Patient appears in no apparent distress at this time. Patient and/or vc family updated on plan of care and expected duration. Pain level reassessed. Patient is alert, oriented x 3, equal unlabored respirations, skin warm/dry/pink. Vital Signs: 13:50 BP 112 / 86; Pulse 104; Resp 17; Temp 98.2; Pulse Ox 98% ; Pain 5/10; ll1 14:46 BP 119 / 76; Pulse 89; Resp 18; Temp 97.9; Pulse Ox 100% on R/A; vc ED Course: 13:36 Patient arrived in ED. fj1 13:52 Triage completed. ll1 13:53 Arm band placed on Patient placed in an exam room, on a stretcher. ll1 13:57 Roddy Greenwood PA is PHCP. jr8 13:57 Greg Lin MD is Attending Physician. jr8 14:30 Patient swabbed for COVID-19. jp3 14:46 Kelley Mi, YOVANA is Primary Nurse. vc 14:48 Patient has correct armband on for positive identification. Bed in low position. Call vc light in reach. Adult w/ patient. Pulse ox on. NIBP on. 14:50 X-ray(s) taken. jp3 15:03 X-ray completed. Portable x-ray completed in exam room. Patient tolerated procedure ml well. 15:07 XRAY Chest (1 view) In Process Unspecified. EDMS 15:40 Assist provider with bone marrow aspiration. Patient did not have IV access during this emergency room visit. 15:40 Patient maintains SpO2 saturation greater than 95% on room air. vc Administered Medications: No medications were administered Outcome: 15:13 Discharge ordered by . nithin 15:40 Patient left the ED. vc 15:40 Admitted to 15:40 Discharged to home ambulatory, with significant other. 15:40 Condition: good 15:40 Discharge instructions given to patient, significant other, Instructed on discharge instructions, follow up and referral plans. no drinking with medication, no driving heavy equipment, medication usage, Demonstrated understanding of instructions, follow-up care, medications, Prescriptions given X 1. Addendum: 12/12/2019 11:36 Addendum: Other Pt notified of Negative COVID-19 Swab Results. Pt advised to remain in d m5 isolation until symptom free for 3 days and to return to the ED for worsening symptoms. Signatures: Dispatcher [employer] EDKY Chely De La Rosa, RN RN Rafaela Montgomery Josh, PA PA jr8 Orlando Kincaid jp3 Kelley Mi RN RN Tesfaye Alvarado1 Larry Holly RN RN ll1 Corrections: (The following items were deleted from the chart) 12/09 15:59 15:55 Patient left the ED. [facility]
--- NOTE | 2019-12-10 15:14 | EDPHYS ---
Physician Documentation [facility] Name: Nicho Roman Age: 39 yrs Sex: Female : 1980 Arrival Date: 12/10/2019 Time: 13:36 Bed 20 Private MD: ED Physician Greg Lin HPI: 12/09 14:32 This 39 yrs old Female presents to ER via Ambulatory with complaints of COVID jr8 SYMPTOMS. 14:32 Patient presents to ED with complains of body aches, chills, fatigue, headache, cough, jr8 diarrhea for past 4 days. Wants to be tested . Onset: The symptoms/episode began/occurred 4 day(s) ago. Severity of symptoms: At their worst the symptoms were moderate in the emergency department the symptoms are unchanged. The patient has not experienced similar symptoms in the past. The patient has not recently seen a physician. 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 - Social history:: Smoking status: Patient reports the use of cigarette tobacco products, smokes one pack cigarettes per day. Patient/guardian denies using alcohol, street drugs. ROS: 14:32 Eyes: Negative for injury, pain, redness, and discharge, ENT: Negative for injury, jr8 pain, and discharge, Neck: Negative for injury, pain, and swelling, Cardiovascular: Negative for chest pain, palpitations, and edema, Back: Negative for injury and pain, MS/Extremity: Negative for injury and deformity, Skin: Negative for injury, rash, and discoloration. 14:32 Constitutional: Positive for body aches, chills, fatigue, malaise. 14:32 Respiratory: Positive for cough, Negative for shortness of breath, sputum production, wheezing. 14:32 Abdomen/GI: Positive for diarrhea, Negative for abdominal pain, nausea and vomiting. 14:32 Neuro: Positive for headache. Exam: 14:32 Constitutional: This is a well developed, well nourished patient who is awake, alert, jr8 and in no acute distress. Eyes: Pupils equal round and reactive to light, extra-ocular motions intact. Lids and lashes normal. Conjunctiva and sclera are non-icteric and not injected. Cornea within normal limits. Periorbital areas with no swelling, redness, or edema. Cardiovascular: Regular rate and rhythm Respiratory: No increased work of breathing, no retractions or nasal flaring. No signs of acute distress Abdomen/GI: Soft, non-tender, with normal bowel sounds. No distension or tympany. No guarding or rebound. No evidence of tenderness throughout. Skin: Warm, dry with normal turgor. Normal color with no rashes, no lesions, and no evidence of cellulitis. MS/ Extremity: Pulses equal, no cyanosis. Neurovascular intact. Full, normal range of motion. Neuro: Awake and alert, GCS 15, oriented to person, place, time, and situation. Cranial nerves II-XII grossly intact. Motor strength 5/5 in all extremities. Sensory grossly intact. Cerebellar exam normal. Normal gait. Vital Signs: 13:50 BP 112 / 86; Pulse 104; Resp 17; Temp 98.2; Pulse Ox 98% ; Pain 5/10; ll1 14:46 BP 119 / 76; Pulse 89; Resp 18; Temp 97.9; Pulse Ox 100% on R/A; vc MDM: 13:57 Patient medically screened. jr8 15:12 Data reviewed: vital signs, nurses notes, lab test result(s), radiologic studies, plain jr8 films. Data interpreted: Pulse oximetry: on room air is 100 %. Interpretation: normal. Counseling: I had a detailed discussion with the patient and/or guardian regarding: the historical points, exam findings, and any diagnostic results supporting the discharge/admit diagnosis, lab results, radiology results, the need for outpatient follow up, a family practitioner, to return to the emergency department if symptoms worsen or persist or if there are any questions or concerns that arise at home. ED course: No acute findings on exam and CXR. Explained to patient that she needs to continue to isolate at home. If she were to become short of breath to come back for further evaluation . 12/09 14:04 Order name: COVID-19 [facility] 12/09 14:05 Order name: XRAY Chest (1 view); Complete Time: 15:34 [facility] 12/09 14:04 Order name: Droplet/Contact Precautions; Complete Time: 14:46 jr8 12/09 14:04 Order name: Labs collected and sent; Complete Time: 14:46 jr8 12/09 14:04 Order name: O2 Per Protocol; Complete Time: 14:46 8 Administered Medications: No medications were administered Disposition: 16:02 Co-signature as Attending Physician, Greg Lin MD. rn Disposition: 12/10/19 15:13 Discharged to Home. Impression: Viral infection, unspecified. - Condition is Stable. - Discharge Instructions: COVID-19. - Medication Reconciliation Form, Thank You Letter, Antibiotic Education, Prescription Opioid Use form. - Follow up: Private Physician; When: 10 - 14 days; Reason: Recheck today's complaints, Continuance of care, Re-evaluation by your physician. - Problem is new. - Symptoms are unchanged. Signatures: Dispatcher [employer] EDMS Greg Lin MD MD rn Roszak, Josh, PA PA jr8 Kelley Mi RN RN vc Lewis, Lynsay, RN RN ll1 Corrections: (The following items were deleted from the chart) 15:55 15:13 12/10/2019 15:13 Discharged to Home. Impression: Viral infection, unspecified. vc Condition is Stable. Forms are Medication Reconciliation Form, Thank You Letter, Antibiotic Education, Prescription Opioid Use. Follow up: Private Physician; When: 10 - 14 days; Reason: Recheck today's complaints, Continuance of care, Re-evaluation by your physician. Problem is new. Symptoms are unchanged. jr8
--- NOTE | 2019-12-10 15:31 | RAD REPORT ---
EXAM DESCRIPTION: RAD - Chest Single View - 12/10/2019 3:07 pm CLINICAL HISTORY: possible covid ;Cough;Dyspnea COMPARISON: None TECHNIQUE: AP portable chest image was obtained 12/10/2019 3:07 pm . FINDINGS: No focal infiltrate. No hazy peripheral opacification or other finding for focal or diffus e acute lung process. Lung markings are within the range of normal. Heart and vasculature are normal. No measurable pleural effusion and no pneumothorax. No acute bony abnormality seen. No acute aortic findings suspected. IMPRESSION: No acute cardiopulmonary process. No chest findings suspicious for COVID-19 infection.
--- OUTSIDE RECORDS SUMMARY | 2019-12-10 15:51 | XMS REPORT | Continuity of Care Document ---
:1980 Author Organization [facility] t Address [address] [place] [address] Care Team Providers Name Role Phone Unavailable Unavailable Unavailable Payers Payer Name Policy Type Policy Number Effective Date Expiration Date S ource Problems This patient has no known problems. Allergies, Adverse Reactions, Alerts Allergy Allergy Status Severity Reaction(s) Onset Inactive Treating Comm ents Source Name Type Date Date Clinician No Known DA Active [facility] d 00 [facility] Medications This patient has no known medications. Procedures This patient has no known procedures. Results Test Description Test Time Test Comments Results Result Comments Source UR HCG QUAL 2018-11-08 07:19:00 Test Item Value Reference Range Interpretation Comme nts UR HCG QUAL (test code = HCGQLU) NEGATIVE NEGATIVE
[2019-12-10 18:41] VITALS: BP 119/76; TEMP 97.9; O2SAT 100
== END 2019-12-10 15:55 | disposition home or self-care (01) ==
LOC: ER 13:32
DX: B34.9 Viral infection, unspecified (principal); Z20.828 Contact with and (suspected) exposure to other viral communicable diseases; F17.210 Nicotine dependence, cigarettes, uncomplicated; Z88.8 Allergy status to other drugs, medicaments and biological substances
CPT/HCPCS: 71045; 99285; U0001

== ENCOUNTER 2022-08-09 10:33 | Emergency (ER) | payer OTHER, SELFPAY ==
--- OUTSIDE RECORDS SUMMARY | 2022-08-09 10:36 | XMS REPORT | Continuity of Care Document ---
:1980 Author Organization [facility] t Address [address] [place] [address] Care Team Providers Name Role Phone Unavailable Unavailable Unavailable Payers Payer Name Policy Type Policy Number Effective Date Expiration Date S ource Problems This patient has no known problems. Allergies, Adverse Reactions, Alerts Allergy Allergy Status Severity Reaction(s) Onset Inactive Treating Comm ents Source Name Type Date Date Clinician No Known DA Active [facility]: d 00 [facility] [place] Medications This patient has no known medications. Procedures This patient has no known procedures. Results Test Description Test Time Test Comments Results Result Comments Source UR HCG QUAL 2018-11-08 07:19:00 Test Item Value Reference Range Interpretation Comme nts UR HCG QUAL (test code = HCGQLU) NEGATIVE NEGATIVE
[2022-08-09 12:08] LABS: SARS-COV-2 RT PCR POSITIVE (NEGATIVE)
--- NOTE | 2022-08-09 12:24 | EDPHYS ---
Physician Documentation [facility] Name: Nicho Roman Age: 42 yrs Sex: Female : 1980 Arrival Date: 08/09/2022 Time: 10:43 Bed 11 Private MD: ED Physician Tito Florentino HPI: 08/09 11:18 This 42 yrs old Female presents to ER via Ambulatory with complaints of Fever, snw Headache, bodyaches. 11:18 The patient reports fever, that was measured at 103 degrees Fahrenheit. Onset: The snw symptoms/episode began/occurred suddenly, last night. Modifying factors: there are no obvious modifying factors. Severity of symptoms: At their worst the symptoms were moderate severe in the emergency department the symptoms are unchanged. It is unknown whether or not the patient has had similar symptoms in the past. The patient has not recently seen a physician. + significant other with leukemia. 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 - Social history:: Smoking status: Patient reports the use of cigarette tobacco products, smokes one pack cigarettes per day. ROS: 11:18 Eyes: Negative for injury, pain, redness, and discharge. snw 11:18 Neck: Negative for injury, pain, and swelling, Cardiovascular: Negative for chest pain, palpitations, and edema, Respiratory: Negative for shortness of breath, cough, wheezing, and pleuritic chest pain, Abdomen/GI: Negative for abdominal pain, nausea, vomiting, diarrhea, and constipation, Back: Negative for injury and pain, : Negative for injury, bleeding, discharge, and swelling, MS/Extremity: Negative for injury and deformity, Skin: Negative for injury, rash, and discoloration, Neuro: Negative for headache, weakness, numbness, tingling, and seizure. 11:18 Constitutional: Positive for body aches, chills, fatigue, fever, malaise, poor PO intake. 11:18 ENT: Positive for sinus pain. Exam: 11:16 Head/Face: Normocephalic, atraumatic. Eyes: Pupils equal round and reactive to light, snw extra-ocular motions intact. Lids and lashes normal. Conjunctiva and sclera are non-icteric and not injected. Cornea within normal limits. Periorbital areas with no swelling, redness, or edema. 11:16 Neck: Trachea midline, no thyromegaly or masses palpated, and no cervical lymphadenopathy. Supple, full range of motion without nuchal rigidity, or vertebral point tenderness. No Meningismus. Chest/axilla: Normal chest wall appearance and motion. Nontender with no deformity. No lesions are appreciated. Cardiovascular: Regular rate and rhythm with a normal S1 and S2. No gallops, murmurs, or rubs. Normal PMI, no JVD. No pulse deficits. Respiratory: Lungs have equal breath sounds bilaterally, clear to auscultation and percussion. No rales, rhonchi or wheezes noted. No increased work of breathing, no retractions or nasal flaring. Abdomen/GI: Soft, non-tender, with normal bowel sounds. No distension or tympany. No guarding or rebound. No evidence of tenderness throughout. Back: No spinal tenderness. No costovertebral tenderness. Full range of motion. Skin: Warm, dry with normal turgor. Normal color with no rashes, no lesions, and no evidence of cellulitis. MS/ Extremity: Pulses equal, no cyanosis. Neurovascular intact. Full, normal range of motion. Neuro: Awake and alert, GCS 15, oriented to person, place, time, and situation. Cranial nerves II-XII grossly intact. Motor strength 5/5 in all extremities. Sensory grossly intact. Cerebellar exam normal. Normal gait. Psych: Awake, alert, with orientation to person, place and time. Behavior, mood, and affect are within normal limits. 11:16 Constitutional: The patient appears alert, frail, uncomfortable. 11:16 ENT: TM's: are normal, Posterior pharynx: Tonsils: bilaterally enlarged, Dental exam: gingivitis, dry, reddened tongue, Voice: is hoarse. Vital Signs: 10:49 BP 96 / 69; Pulse 90; Resp 18; Temp 98.4; Pulse Ox 95% ; Weight 47.63 kg; Height 5 ft. jh5 1 in. (154.94 cm); Pain 6/10; 10:49 Body Mass Index 19.84 (47.63 kg, 154.94 cm) [facility] MDM: 11:03 Patient medically screened. snw 12:21 Differential diagnosis: viral Infection, bacterial infection, URI, bronchitis, snw pneumonia. Data reviewed: vital signs, nurses notes, lab test result(s). Counseling: I had a detailed discussion with the patient and/or guardian regarding: the historical points, exam findings, and any diagnostic results supporting the discharge/admit diagnosis, lab results, the need for outpatient follow up, to return to the emergency department if symptoms worsen or persist or if there are any questions or concerns that arise at home. Special discussion: Based on the history and exam findings, there is no indication for further emergent testing or inpatient evaluation. I discussed with the patient/guardian the need to see the primary care provider for further evaluation of the symptoms. 08/09 10:54 Order name: COVID-19/FLU A+B [facility] 08/09 10:54 Order name: Strep [facility] 08/09 11:40 Order name: Group A Streptococcus Rapid Sc; Complete Time: 11:47 EDMS 08/09 12:08 Order name: COVID-19/FLU A+B; Complete Time: 12:11 EDMS Administered Medications: No medications were administered Disposition Summary: 08/09/22 12:23 Discharge Ordered Location: Home snw Condition: Stable snw Diagnosis - SARS-associated coronavirus as the cause of diseases classified elsewhere snw Followup: snw - With: Emergency Department - When: As needed - Reason: Worsening of condition Followup: snw - With: Private Physician - When: 2 - 3 days - Reason: Recheck today's complaints, Continuance of care, Re-evaluation by your physician Discharge Instructions: - Discharge Summary Sheet snw - Aspirin and Your Heart snw - COVID-19 snw - 10 Things You Can Do to Manage Your COVID-19 Symptoms at Home - [facility] snw - COVID-19: Quarantine vs. Isolation - [facility] snw Forms: - Medication Reconciliation Form snw - Thank You Letter snw - Antibiotic Education snw - Prescription Opioid Use snw Prescriptions: - Zyrtec 10 mg Oral Tablet - take 1 tablet by ORAL route once daily As needed; 20 tablet; Refills: 0, snw Product Selection Permitted - Prednisone 20 mg Oral Tablet - take 2 tablets by ORAL route once daily for 5 days; 10 tablet; Refills: 0, snw Product Selection Permitted - Pepcid 20 mg Oral Tablet - take 1 tablet by ORAL route once daily; 20 tablet; Refills: 0, Product snw Selection Permitted - Zithromax 500 mg Oral Tablet - take 1 tablet by ORAL route once daily for 5 days; 5 tablet; Refills: 0, snw Product Selection Permitted Signatures: Dispatcher [employer] Meme Tirado FNP-C PROMISE-Krystal Huffman, RN RN jh5
--- NOTE | 2022-08-09 12:24 | ER ---
Nurse's Notes [facility] Name: Nicho Roman Age: 42 yrs Sex: Female : 1980 Arrival Date: 08/09/2022 Time: 10:43 Bed 11 Private MD: Diagnosis: SARS-associated coronavirus as the cause of diseases classified elsewhere Presentation: 08/09 10:49 Chief complaint: Patient states: headache for a couple days but last night things got jh5 way worse with a 101 fever and bodyaches. My boyfriend had leukemia so I cant be around him with any sickness. Coronavirus screen: Vaccine status: Patient reports being unvaccinated. Client denies travel out of the [place] in the last 14 days. Ebola Screen: Patient negative for fever greater than or equal to 101.5 degrees Fahrenheit, and additional compatible Ebola Virus Disease symptoms Patient denies exposure to infectious person. Patient denies travel to an Ebola-affected area in the 21 days before illness onset. Initial Sepsis Screen: Does the patient meet any 2 criteria? No. Patient's initial sepsis screen is negative. Does the patient have a suspected source of infection? No. Patient's initial sepsis screen is negative. Risk Assessment: Do you want to hurt yourself or someone else? Patient reports no desire to harm self or others. Onset of symptoms was August 05, 2022. 10:49 Method Of Arrival: Ambulatory [facility] 10:49 Acuity: ROSIBEL 3 5 Triage Assessment: 10:51 Headache History: Denies prior headaches. General: Appears uncomfortable, slender, [facility] Behavior is calm, cooperative, appropriate for age, drowsy, fussy. Pain: Complains of pain in headache Pain currently is 6 out of 10 on a pain scale. at worst was 10 out of 10 on a pain scale. Pain began gradually. Neuro: No deficits noted. 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 - Social history:: Smoking status: Patient reports the use of cigarette tobacco products, smokes one pack cigarettes per day. Screenin:34 [facility] ED Fall Risk Assessment (Adult) History of falling in the last 3 months, ap3 including since admission No falls in past 3 months (0 pts). Abuse screen: Denies threats or abuse. Nutritional screening: No deficits noted. Tuberculosis screening: No symptoms or risk factors identified. Vital Signs: 10:49 BP 96 / 69; Pulse 90; Resp 18; Temp 98.4; Pulse Ox 95% ; Weight 47.63 kg; Height 5 ft. 5 1 in. (154.94 cm); Pain 6/10; 10:49 Body Mass Index 19.84 (47.63 kg, 154.94 cm) 5 ED Course: 10:43 Patient arrived in ED. am2 10:44 Meme Myers FNP-C [facility] snw 10:44 Tito Florentino MD is Attending Physician. snw 10:51 Triage completed. 5 10:51 Arm band placed on right wrist. [facility] 11:26 Jazzmine Gracia, YOVANA is Primary Nurse. ap3 12:34 Patient has correct armband on for positive identification. ap3 12:34 No provider procedures requiring assistance completed. Patient did not have IV access ap3 during this emergency room visit. Administered Medications: No medications were administered Medication: 12:34 VIS not applicable for this client. ap3 Outcome: 12:23 Discharge ordered by . snw 12:52 Discharged to home ambulatory. ap3 12:52 Condition: good 12:52 Discharge instructions given to patient, Instructed on discharge instructions, follow up and referral plans. medication usage, Demonstrated understanding of instructions, follow-up care, medications, Prescriptions given X 4. 12:53 Patient left the ED. ap3 Signatures: Meme Myers FNP-C GATEKEEPER-Csnw Jazzmine Basurto am2 Jazzmine Gracia, RN RN ap3 Krystal Clarke RN RN 5 Corrections: (The following items were deleted from the chart) 10:54 10:49 47.63 kg; Height 5 ft. 1 in.; BMI: 19.8; Pain 6/10; 5 [facility]
[2022-08-09 13:03] VITALS: BP 96/69; TEMP 98.4; O2SAT 95
== END 2022-08-09 12:53 | disposition home or self-care (01) ==
LOC: ER 10:33
DX: U07.1 COVID-19 (principal); F17.210 Nicotine dependence, cigarettes, uncomplicated; Z88.8 Allergy status to other drugs, medicaments and biological substances; Z91.048 Other nonmedicinal substance allergy status
CPT/HCPCS: 87070; 87081; 0240U; 99282

== ENCOUNTER 2022-08-18 09:24 | Emergency (ER) | payer OTHER ==
--- OUTSIDE RECORDS SUMMARY | 2022-08-18 09:29 | XMS REPORT | Continuity of Care Document ---
:1980 Author Organization [facility] t Address [address] [place] [address] [place] [id number] Care Team Providers Name Role Phone Unavailable Unavailable Unavailable Payers Payer Name Policy Type Policy Number Effective Date Expiration Date S ource Problems This patient has no known problems. Allergies, Adverse Reactions, Alerts Allergy Allergy Status Severity Reaction(s) Onset Inactive Treating Comm ents Source Name Type Date Date Clinician No Known DA Active U [facility] 11-07 [facility] 00:00: d 00 [facility] [place] Medications This patient has no known medications. Procedures This patient has no known procedures. Results Test Description Test Time Test Comments Results Result Comments Source UR HCG QUAL 2018-11-08 07:19:00 Test Item Value Reference Range Interpretation Comme nts UR HCG QUAL (test code = HCGQLU) NEGATIVE NEGATIVE
[2022-08-18 09:56] LABS: SARS-CoV-2 Antigen Rapid Res Negative (Negative)
--- NOTE | 2022-08-18 10:14 | ER ---
Nurse's Notes [facility] Name: Nicho Roman Age: 42 yrs Sex: Female : 1980 Arrival Date: 08/18/2022 Time: 09:26 Bed IW1 Private MD: Davis Berger E Diagnosis: Encounter for screening for other disorder Presentation: 08/18 09:35 Chief complaint: Patient states: Tested positive on 08/09/22, staying at hotel due to jl7 family at home with cancer. Coronavirus screen: Client presents with at least one sign or symptom that may indicate coronavirus-19. Ebola Screen: No symptoms or risks identified at this time. Initial Sepsis Screen: Does the patient meet any 2 criteria? No. Patient's initial sepsis screen is negative. Does the patient have a suspected source of infection? No. Patient's initial sepsis screen is negative. Risk Assessment: Do you want to hurt yourself or someone else? Patient reports no desire to harm self or others. Onset of symptoms is unknown. 09:35 Method Of Arrival: Ambulatory [facility] 09:35 Acuity: ROSIBEL 4 jl7 Triage Assessment: 09:37 General: Appears in no apparent distress. uncomfortable, Behavior is calm, cooperative, jl7 appropriate for age. Pain: Denies pain. 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 - Social history:: Smoking status: Patient reports the use of cigarette tobacco products, smokes one pack cigarettes per day. Vital Signs: 09:35 BP 108 / 80; Pulse 89; Resp 17; Temp 98.8; Pulse Ox 95% ; Weight 48.99 kg; Height 5 ft. jl7 1 in. (154.94 cm); Pain 0/10; 09:35 Body Mass Index 20.41 (48.99 kg, 154.94 cm) jl7 ED Course: :26 Patient arrived in ED. am2 09:26 Davis Berger MD is Private Physician. am2 09:26 [facility] jh7 09:26 Crispin Hill DO is Attending Physician. jh7 09:37 Triage completed. jl7 09:37 Arm band placed on right wrist. jl7 10:12 Davis Berger MD is Referral Physician. jh7 10:12 SARS RAPID Sent. jl7 Administered Medications: No medications were administered Outcome: 10:14 Discharge ordered by . 7 10:54 Patient left the ED. 7 Signatures: Brain Walker RN RN jl7 Jazzmine Basurto am2 Carleen Alejo FNP RELAY TESTER [facility]
--- NOTE | 2022-08-18 10:14 | EDPHYS ---
Physician Documentation [facility] Name: Nicho Roman Age: 42 yrs Sex: Female : 1980 Arrival Date: 08/18/2022 Time: 09:26 Bed IW1 Private MD: Davis Berger E ED Physician Crispin Hill HPI: 08/18 09:30 This 42 yrs old Female presents to ER via Unassigned with complaints of r/o covid. jh7 09:30 Onset: The symptoms/episode began/occurred 2 week(s) ago. Associated signs and jh7 symptoms: Pertinent positives: Fatigue, Pertinent negatives: congestion, fever, shortness of breath, vomiting, wheezing. Patient needs a negative COVID test to return to work. States that she has been staying at a hotel room for the past 2 weeks and that her boyfriend has leukemia at home. Wants to ensure that she is negative before she returns home.. 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 - Social history:: Smoking status: Patient reports the use of cigarette tobacco products, smokes one pack cigarettes per day. ROS: 09:30 ENT: Negative for injury, pain, and discharge, Neck: Negative for injury, pain, and jh7 swelling, Cardiovascular: Negative for chest pain, palpitations, and edema, Respiratory: Negative for shortness of breath, cough, wheezing, and pleuritic chest pain, Abdomen/GI: Negative for abdominal pain, nausea, vomiting, diarrhea, and constipation, MS/Extremity: Negative for injury and deformity, Skin: Negative for injury, rash, and discoloration, Neuro: Negative for headache, weakness, numbness, tingling, and seizure. 09:30 Constitutional: Positive for fatigue, Negative for fever. 09:30 All other systems are negative. Exam: 09:30 Constitutional: This is a well developed, well nourished patient who is awake, alert, jh7 and in no acute distress. Head/Face: Normocephalic, atraumatic. Eyes: Pupils equal round and reactive to light, extra-ocular motions intact. Lids and lashes normal. Conjunctiva and sclera are non-icteric and not injected. Cornea within normal limits. Periorbital areas with no swelling, redness, or edema. Cardiovascular: Regular rate and rhythm with a normal S1 and S2. No gallops, murmurs, or rubs. Normal PMI, no JVD. No pulse deficits. Respiratory: Lungs have equal breath sounds bilaterally, clear to auscultation and percussion. No rales, rhonchi or wheezes noted. No increased work of breathing, no retractions or nasal flaring. Skin: Warm, dry with normal turgor. Normal color with no rashes, no lesions, and no evidence of cellulitis. MS/ Extremity: Pulses equal, no cyanosis. Neurovascular intact. Full, normal range of motion. Neuro: Awake and alert, GCS 15, oriented to person, place, time, and situation. Normal gait. Vital Signs: 09:35 BP 108 / 80; Pulse 89; Resp 17; Temp 98.8; Pulse Ox 95% ; Weight 48.99 kg; Height 5 ft. jl7 1 in. (154.94 cm); Pain 0/10; 09:35 Body Mass Index 20.41 (48.99 kg, 154.94 cm) [facility] MDM: 09:26 Patient medically screened. [facility] 10:15 Differential diagnosis: viral Infection. Data reviewed: vital signs, nurses notes. [facility] Counseling: I had a detailed discussion with the patient and/or guardian regarding: the historical points, exam findings, and any diagnostic results supporting the discharge/admit diagnosis, to return to the emergency department if symptoms worsen or persist or if there are any questions or concerns that arise at home. ED course: The patient tested negative for COVID. Advised her to return to the ER if needed.. 08/18 09:30 Order name: SARS RAPID [facility] 08/18 09:56 Order name: SARS-COV-2 Antigen Rapid; Complete Time: 10:15 EDMS Administered Medications: No medications were administered Disposition: 18:52 Co-signature as Attending Physician, Crispin Hill DO I was immediately available on-site ms3 in the Emergency Department for consultation in the care of the patient. Disposition Summary: 08/18/22 10:14 Discharge Ordered Location: Home [facility] Problem: new [facility] Symptoms: are resolved [facility] Condition: Stable [facility] Diagnosis - Encounter for screening for other disorder [facility] Followup: [facility] - With: Davis Berger MD - When: As needed - Reason: Discharge Instructions: - Discharge Summary Sheet [facility] - COVID-19 Frequently Asked Questions [facility] Forms: - Work release form [facility] - Medication Reconciliation Form [facility] - Thank You Letter [facility] Signatures: Dispatcher [employer] Brain aLnderos RN RN jl7 Crispin Hill DO DO ms3 Carleen Alejo, FUEL DOCK ATTENDANT FUEL DOCK ATTENDANT [facility]
[2022-08-18 11:23] VITALS: BP 108/80; TEMP 98.8; O2SAT 95
== END 2022-08-18 10:54 | disposition home or self-care (01) ==
LOC: ER 09:24
DX: Z20.822 Contact with and (suspected) exposure to COVID-19 (principal); R53.83 Other fatigue
CPT/HCPCS: 36415; 87811; 99282

== ENCOUNTER 2023-03-21 19:20 | Emergency (ER) | payer OTHER, SELFPAY ==
--- OUTSIDE RECORDS SUMMARY | 2023-03-21 19:23 | XMS REPORT | Continuity of Care Document ---
:1980 Author Organization [facility] t Address [address] [place] [address] [place] [id number] Care Team Providers Name Role Phone Unavailable Unavailable Unavailable Payers Payer Name Policy Type Policy Number Effective Date Expiration Date S ource Problems This patient has no known problems. Allergies, Adverse Reactions, Alerts Allergy Allergy Status Severity Reaction(s) Onset Inactive Treating Comm ents Source Name Type Date Date Clinician No Known DA Active U [facility] 11-07 [facility] s 00:00: d 00 [facility] Medications This patient has no known medications. Procedures This patient has no known procedures. Encounters Start End Encounter Admission Attending Care Care Encounter Source Date/Time Date/Time Type Type Clinicians Facility Department ID 2023-01-04 2023-01-04 Outpatient [facility] [id number] Dio 09:26:55 09:26:55 [id number] F Malcom 2022-12-26 2022-12-26 Outpatient [facility] SFA [id number] Dio 09:31:50 09:31:50 [id number] F Malcom 2022-10-03 2022-10-03 Outpatient [facility] SFA [id number] Dio 10:02:42 10:02:42 [id number] F Malcom 2022-09-21 2022-09-21 Outpatient SFA SFA [id number] Dio 10:37:11 10:37:11 [id number] F Malcom 2022-09-12 2022-09-12 Outpatient [facility] SFA [id number] Dio 11:10:49 11:10:49 [id number] [facility] Results Test Description Test Time Test Comments Results Result Comments Source THC METABOLITE, QUANT, URINE 2022-12-29 09:42:08 Test Item Value Reference Range Interpretation Comme nts CARBOXY-THC INTERP (test Positive A code = 21587) CARBOXY-THC QNT (test code = 315 ng/mL <15 [place] [address]) positive result determination. Specimen Type: Urine Uri ne drug and metabolite concentrations are dependent on manyfactors, in cluding patient compliance, ephraim g dosing, dosing interval,indivi dual variation in drug absorption and metabolism, urineconcentrat ion, and limitations of testing. Assay is intended formedical purposes only, not for forensic use. This test was svetlana juarez and its performance characteristics determined by [facility] ([facility]). It has not beencleared or approved by the U.S. Food and Drug Admini stration (FDA).The FDA has determined that such clearance or approval is not necessary. This test is used for clinic al purposes and should not beregarded as i nvestigational or for research. [facility] i s qualified toperform high complexity test ing under the Clinical LaboratoryImpro vement Amendments (CLIA). TESTING PERFORM ED AT [facility] [address] [place] [address], [address], [address] [address] CLIA NO: [id number] UNLESS OTHERWISE INDICATED, ALL TESTING PERFORMED AT [facility] [address] [place] [address] ANVIL SEATING PRESS OPERATOR: KRIS CASE M.D. CLIA NUMBER [id number] [place]. [id number] DRUG ABUSE SCREEN 10 REFLEX [id number] 07:25:59 Test Item Value Reference Interpretation Comments Range AMPHETAMINES (test NEGATIVE NEGATIVE code = 3201) BARBITURATES (test NEGATIVE NEGATIVE code = 3202) BENZODIAZEPINES NEGATIVE NEGATIVE (test code = 3203) CANNABINOIDS (test SEE REFLEX NEGATIVE A code = 3204) TESTING COCAINE METABOLITE NEGATIVE NEGATIVE (test code = 3205) OPIATES (test code = NEGATIVE NEGATIVE 3209) OXYCODONE (test code NEGATIVE NEGATIVE = 91387) PHENCYCLIDINE (test NEGATIVE NEGATIVE code = 3210) METHADONE (test code NEGATIVE NEGATIVE = 3207) BUPRENORPHINE (test NEGATIVE NEGATIVE code = 26613) SOURCE (test code = URINE SEE BELOW FOR 312707) THRESHOLDS AND IMPORTANT METHOD NOTES * ANALYTE SCREENING CUTOF F CONFIRMATORY CUTOFF ___AMPHETAMINES 500 NG/ML 100 NG/MLBARBITURAT ES 200 NG/ML 100 NG/MLBENZODIAZE PINES 200 NG/ML 100 NG/MLCANNABINOI DS (THC) 20 NG/ML 15 NG/ MLCOCAINE METABOLITES 150 NG/ML 100 NG/MLOPIATE METABOLITES 300 NG/ML 100 NG/MLOXYCOD ONE 100 NG/ML 100 NG/MLPHENCYCLID INE (PCP) 25 NG/ML 25 NG/MLMETHADONE 300 NG/ML 100 NG/MLBUPREN ORPHINE 5 NG/ML 5 NG/ML N OTE: Screening metho dology is qualitative Enz yme Immunoassay.The screening metho d may be less sensitive for certain medicationsincl uding clonazepam and lorazepam in the benzodia zepine assay andtramad ol or fentanyl in the opiate assay, amongst others. Patientcomplian ce, hydration statu s, timing and dose of med ications, drugabsorption and specimen qualit y may affect screenin g assay.For clini jeanette discrepancies, consider directed testin g for specificcompoun ds or contact the lab oratory within specimen stability tofor patel for confirmatory te sting. This test is sp ecified for medicalpurp oses only. It is not valid for forensic us e. UR HCG [id number] 07:19:00 Test Item Value Reference Range Interpretation Comments UR HCG QUAL (test code = HCGQLU) NEGATIVE NEGATIVE
[2023-03-21 20:09] LABS: Specific Gravity 1.027 (1.005-1.030); Urine Bacteria <20 /HPF (<20); Urine Bilirubin NEGATIVE (Negative); Urine Blood 3+ (OVER) (Negative); Urine Clarity Extremely Turbid (Clear); Urine Color Light-Orange (Yellow); Urine Glucose NEGATIVE (Negative); Urine Mucus 2+ /HPF (None Seen); Urine Protein 1+ (Negative); Urine RBC >50 /HPF (None Seen); Urine Urobilinogen 1+ (Normal)
--- NOTE | 2023-03-21 20:18 | EDPHYS ---
Physician Documentation [facility] Name: Nicho Roman Age: 43 yrs Sex: Female : 1980 Arrival Date: 03/21/2023 Time: 19:20 Bed IW1 Private MD: ED Physician Tito Florentino HPI: 03/21 21:57 This 43 yrs old Female presents to ER via Ambulatory with complaints of Abdominal Pain. kb 21:57 The patient presents with urinary symptoms, dysuria, hematuria. Onset: The kb symptoms/episode began/occurred 2 day(s) ago. Modifying factors: The symptoms are alleviated by nothing, the symptoms are aggravated by urinating. Associated signs and symptoms: Pertinent positives: hematuria, urinary frequency. Severity of symptoms: At their worst the symptoms were mild, in the emergency department the symptoms are unchanged. The patient has experienced similar episodes in the past. The patient has not recently seen a physician. Pt reports dysuria and mild hematuria that started 2 days ago. States it feels exactly like previous UTIs. States she called into work yesterday and today. was told she had to have a note to return. States "I just came for a note so the faster you could get me out of here the better.". Historical: - Allergies: 19:40 Azo; cm10 19:40 Iodine; cm10 - PMHx: 19:40 Anxiety; Depression; Opiate Abuse; cm10 - Immunization history:: Adult Immunizations unknown. - Social history:: Smoking status: Patient reports the use of cigarette tobacco products, smokes one pack cigarettes per day. ROS: 21:56 Constitutional: Negative for fever, chills, and weight loss, kb 21:56 : Positive for hematuria, burning with urination, 21:56 All other systems are negative, Exam: 21:57 Constitutional: This is a well developed, well nourished patient who is awake, alert, kb and in no acute distress. Head/Face: Normocephalic, atraumatic. ENT: Moist Mucous membranes Cardiovascular: Regular rate Respiratory: Respirations even and unlabored. No increased work of breathing. Talking in full sentences Abdomen/GI: Soft, non-tender. No distention Skin: Warm, dry with normal turgor. Normal color. MS/ Extremity: Pulses equal, no cyanosis. Neurovascular intact. Full, normal range of motion. Neuro: Awake and alert, GCS 15, oriented to person, place, time, and situation. Moves all extremities. Normal gait. Vital Signs: 19:37 BP 118 / 85; Pulse 98; Resp 18 S; Temp 97.2; Pulse Ox 99% on R/A; Weight 43.09 kg (R); cm10 Height 5 ft. 1 in. ; Pain 2/10; 19:37 Body Mass Index 17.95 (43.09 kg, 154.94 cm) cm10 19:37 Pain Scale: Adult cm10 MDM: 19:34 Patient medically screened. kb 21:55 Differential diagnosis: Pyelonephritis, Ureterolithiasis, urinary tract infection. Data kb reviewed: vital signs, nurses notes. Test considered but Not performed: Labs: cbc, bmp considered but pt states she just came in to get a work note, this feels the same as previous uti. CT: CT considered but pt states this feels exactly like previous UTIs and she just came in to get a work note. Counseling: I had a detailed discussion with the patient and/or guardian regarding the historical points, exam findings, and any diagnostic results supporting the discharge/admit diagnosis, lab results, the need for outpatient follow up, a family practitioner, to return to the emergency department if symptoms worsen or persist or if there are any questions or concerns that arise at home. 03/21 19:41 Order name: Urinalysis w/ reflexes; Complete Time: 20:17 kb 03/21 20:16 Order name: Urine Culture EDMS Administered Medications: No medications were administered Disposition Summary: 03/21/23 20:17 Discharge Ordered Notes: Location: Home kb Condition: Stable kb Diagnosis - UTI/ Urinary tract infection, site not specified kb Followup: kb - With: Emergency Department - When: As needed - Reason: Worsening of condition Followup: kb - With: Private Physician - When: 2 - 3 days - Reason: Recheck today's complaints, Continuance of care, Re-evaluation by your physician Discharge Instructions: - Discharge Summary Sheet kb - Urinary Tract Infection, Adult, [id number] kb Forms: - Work release form kb - Medication Reconciliation Form kb - Thank You Letter kb - Antibiotic Education kb - Prescription Opioid Use kb - Patient Portal Instructions kb - Leadership Thank You Letter kb Prescriptions: - Augmentin 875-125 mg Oral tablet - take 1 tablet ORAL route every 12 hours for 5 days; 10 tablet; Refills: 0, kb Product Selection Permitted Signatures: Dispatcher [employer] Tamanna Chaves, Ree Stubbs RN RN cm10 Corrections: (The following items were deleted from the chart) 21:59 21:57 The patient has not experienced similar symptoms in the past, kb kb
--- NOTE | 2023-03-21 20:18 | ER ---
Nurse's Notes [facility] Name: Nicho Roman Age: 43 yrs Sex: Female : 1980 Arrival Date: 03/21/2023 Time: 19:20 Bed IW1 Private MD: Diagnosis: UTI/ Urinary tract infection, site not specified Presentation: 03/21 19:37 Chief complaint: Patient states: burning with urination X2 days. Pt states that cm10 yesterday she noticed some blood in her urine. No fevers. Coronavirus screen: Vaccine status: Patient reports receiving the 2nd dose of the covid vaccine. Client denies travel out of the [place] in the last 14 days. Ebola Screen: Patient denies travel to an Ebola-affected area in the 21 days before illness onset. No symptoms or risks identified at this time. Initial Sepsis Screen: Does the patient meet any 2 criteria? No. Patient's initial sepsis screen is negative. Does the patient have a suspected source of infection? No. Patient's initial sepsis screen is negative. Risk Assessment: Do you want to hurt yourself or someone else? Patient reports no desire to harm self or others. Onset of symptoms was March 21, 2023. 19:37 Method Of Arrival: Ambulatory cm10 19:37 Acuity: ROSIBEL 3 cm10 Triage Assessment: 19:40 General: Appears in no apparent distress. comfortable, Behavior is calm, cooperative. cm10 Pain: Complains of pain in abdomen. Neuro: No deficits noted. Level of Consciousness is awake, alert, obeys commands, Oriented to person, place, time, situation. Respiratory: No deficits noted. Airway is patent Respiratory effort is even, unlabored, Respiratory pattern is regular, symmetrical. GI: Reports lower abdominal pain. : Reports burning with urination. Historical: - Allergies: 19:40 Azo; cm10 19:40 Iodine; cm10 - PMHx: 19:40 Anxiety; Depression; Opiate Abuse; cm10 - Immunization history:: Adult Immunizations unknown. - Social history:: Smoking status: Patient reports the use of cigarette tobacco products, smokes one pack cigarettes per day. Screenin:41 [facility] ED Fall Risk Assessment (Adult) History of falling in the last 3 months, cm10 including since admission No falls in past 3 months (0 pts) Confusion or Disorientation No (0 pts) Intoxicated or Sedated No (0 pts) Impaired Gait No (0 pts) Mobility Assist Device Used No (0 pt) Altered Elimination No (0 pt) Score/Fall Risk Level 0 - 2 = Low Risk Oriented to surroundings, Maintained a safe environment, Hourly rounding (assess needs \T\ fall precautionary measures) done. Abuse screen: Denies threats or abuse. Denies injuries from another. Nutritional screening: No deficits noted. Tuberculosis screening: No symptoms or risk factors identified. Assessment: 20:25 General: see triage assessment . mb9 Vital Signs: 19:37 BP 118 / 85; Pulse 98; Resp 18 S; Temp 97.2; Pulse Ox 99% on R/A; Weight 43.09 kg (R); cm10 Height 5 ft. 1 in. ; Pain 2/10; 19:37 Body Mass Index 17.95 (43.09 kg, 154.94 cm) cm10 19:37 Pain Scale: Adult cm10 ED Course: 19:25 Patient arrived in ED. 3 19:33 Tamanna Saavedra [facility]NP-C [facility]. kb 19:33 Tito Florentino MD is Attending Physician. kb 19:40 Triage completed. cm10 19:40 Arm band placed on Patient placed in waiting room. cm10 19:41 Patient has correct armband on for positive identification. Provided Education on: ER cm10 process and procedures. . 19:54 Urinalysis w/ reflexes Sent. cm10 20:20 Urine Culture Sent. lg3 20:24 Emily Lopez, YOVANA is Primary Nurse. mb9 20:25 No provider procedures requiring assistance completed. Patient did not have IV access mb9 during this emergency room visit. Administered Medications: No medications were administered Medication: 19:41 VIS not applicable for this client. cm10 Outcome: 20:17 Discharge ordered by . kb 20:25 Discharged to home ambulatory, mb9 20:25 Condition: stable 20:25 Discharge instructions given to patient, Instructed on discharge instructions, follow up and referral plans. medication usage, Demonstrated understanding of instructions, follow-up care, medications, Prescriptions given X 1, 20:25 Patient left the ED. mb9 Signatures: Tamanna Saavedra FNP-C FNP-Ckb Gomez, Alice 3 Esther Dorado RN RN Emily Lubin RN RN mb9 Ree Olivas, RN RN cm10
[2023-03-21 20:29] VITALS: BP 118/85; TEMP 97.2; O2SAT 99
== END 2023-03-21 20:25 | disposition home or self-care (01) ==
LOC: ER 19:20
DX: N39.0 Urinary tract infection, site not specified (principal)
CPT/HCPCS: 81001; 87086; 87088; 99283